=== PATIENT | male | born 1945 | race Caucasian/White ===

== ENCOUNTER 2017-01-17 10:01 | Inpatient (IN) | payer OTHER, MEDICARE ==
[~2017-01-17] VITALS: Ht 182.9 cm; Wt 92.3 kg
[2017-01-17] MEDS ORDERED: ASPI-110 PO (10:03)
[2017-01-17] MEDS ORDERED: MULT-65 PO (10:03)
[2017-01-17] MEDS ORDERED: FISH1000 PO (10:03)
[2017-01-20] MEDS ORDERED: CHLORHEXIDINE GLUCONATE 4% SOLN 120 ML BTL TOPICAL SCH (05:45)
[2017-01-20] MEDS ORDERED: POVIDONE IODINE 7.5% SCRUB 118 ML BOTTLE TOPICAL SCH (05:45)
[2017-01-20] MEDS ORDERED: ceFAZolin 2 GM PREMIX 50 ML IV SCH (05:45)
[2017-01-20] MEDS ORDERED: VANCOMYCIN 1000 MG/NS 250 ML (for <70 kg) IV SCH ×2 (05:45)
[2017-01-20] MEDS ORDERED: DEXAMETHASONE SOD PHOS 20 MG/5 ML VIAL ONE (05:58)
[2017-01-20] MEDS ORDERED: METOPROLOL TARTRATE 25 MG TAB PO PRN (06:00)
[2017-01-20] MEDS ORDERED: INSULIN HUMAN REGULAR 1,000 UNITS/10 ML VIAL SQ PRN (06:00)
[2017-01-20] MEDS ORDERED: SODIUM CHLORID 0.9% 500 ML IV PRN (06:00)
[2017-01-20] MEDS ORDERED: POVIDONE IODINE 5% (ANTISEPSIS KIT) 4 APPLICATIONS EACH NARE PRN (06:00)
[2017-01-20] MEDS ORDERED: LACTATED RINGER'S 1000 ML IV PRN (06:00)
[2017-01-20] MEDS ORDERED: DEXAMETHASONE SOD PHOS 4 MG/ML VIAL IV SCH (06:00)
[2017-01-20] MEDS ORDERED: CHLORHEXIDINE GLUCONATE 2 % 1 PACK (2 CLOTHS) TOPICAL PRN (06:00)
[2017-01-20 06:02] VITALS: BP 159/93; PULSE 86; RESP 18; TEMP 97.9; O2SAT 98
[2017-01-20] MEDS ORDERED: GENTAMICIN SULFATE 80 MG/2 ML VIAL ONE (06:20)
[2017-01-20] MEDS ORDERED: ACETAMINOPHEN 1000 MG/100 ML VIAL IV ONE (06:37)
[2017-01-20] MEDS ORDERED: MIDAZOLAM HCL 2 MG/2 ML VIAL ONE (06:37)
[2017-01-20] MEDS ORDERED: fentaNYL CITRATE 250 MCG/5 ML AMP ONE ×2 (06:37→08:22)
[2017-01-20] MEDS ORDERED: FAMOTIDINE 20 MG/2 ML VIAL ONE (06:37)
[2017-01-20] MEDS ORDERED: DEXAMETHASONE SOD PHOS 4 MG/ML VIAL ONE (06:37)
[2017-01-20] MEDS ORDERED: HYDR-3288 PO (06:44)
[2017-01-20] MEDS ORDERED: ENOX40P SQ (06:44)
[2017-01-20] MEDS ORDERED: diphenhydrAMINE HCL 50 MG/ML VIAL IV PRN (06:45)
[2017-01-20] MEDS ORDERED: BISACODYL 10 MG SUPP RECTAL PRN (06:45)
[2017-01-20] MEDS ORDERED: SODIUM CHLORIDE 0.9% P-ARTICULR SCH (06:45)
[2017-01-20] MEDS ORDERED: ONDANSETRON HCL 4 MG/2 ML VIAL IVP PRN (06:45)
[2017-01-20] MEDS ORDERED: MORPHINE SULFATE 4 MG/ML INJ IV PUSH PRN (06:45)
[2017-01-20] MEDS ORDERED: NALOXONE HCL 0.4 MG/ML AMP IV PRN (06:45)
[2017-01-20] MEDS ORDERED: Post-op Orders (for Pharmacy) MISC XX ONE (06:45)
[2017-01-20] MEDS ORDERED: ZOLPIDEM TARTRATE 5 MG TAB PO PRN (06:45)
[2017-01-20] MEDS ORDERED: ASPI81CH37 CHEW (06:45)
[2017-01-20] MEDS ORDERED: TRANEXAMIC ACID P-ARTICULR SCH (06:45)
[2017-01-20] MEDS ORDERED: SODIUM CHLORIDE 0.9% FLUSH 5 ML FLUSH IVF PRN (06:45)
[2017-01-20] MEDS ORDERED: TRANEXAMIC ACID INJ 2,000 MG in SODIUM CHLORIDE 0.9% INJ 100 ML P-ARTICULR SCH (07:00)
[2017-01-20] MEDS ORDERED: EXPAREL PERI-ARTICULAR INJECTION (TOTAL VOL. 60 ML) P-ARTICULR SCH ×2 (07:00)
[2017-01-20] MEDS ORDERED: TRANEXAMIC ACID IV SCH (07:00)
[2017-01-20] MEDS ORDERED: SODIUM CHLORIDE 0.9% IV SCH (07:00)
[2017-01-20] MEDS ORDERED: DO NOT ADM ANY ANTICOAGULANT DRUGS PRN (08:58)
[2017-01-20] MEDS: SODIUM CHLORIDE 0.9% FLUSH 5 ML FLUSH IVF SCH ×2 (09:00→19:54)
[2017-01-20] MEDS ORDERED: ACETAMINOPHEN/HYDROcodone 325 MG/10 MG TAB PO PRN (09:00)
[2017-01-20] MEDS: SODIUM CHLOR 0.9% 1000 ML INJ 1,000 ML IV SCH ×2 (09:05→17:47)
[2017-01-20] MEDS ORDERED: *morphine SULFATE 8 MG/ML PERIprocedure ONLY ONE (09:38)
--- NOTE | 2017-01-20 10:09 | RADRPT ---
EXAM DATE/TIME: 01/20/2017 09:31 [facility] COMPARISON: No previous studies available for comparison. INDICATIONS : Post-op total right hip arthroplasty. MEDICAL HISTORY : None. SURGICAL HISTORY : None. ENCOUNTER: Initial ACUITY: 1 day PAIN SCORE: 5/10 LOCATION: Right Hip. FINDINGS: Right total hip arthroplasty is present. Hardware appears intact. Alignment is anatomic. The adjacent pelvis is intact. Peterson catheter is noted. Significant degenerative changes present in the contralat eral left hip. CONCLUSION: Satisfactory appearance post right STUART Wali Kramer MD on January 20, 2017 at 10:06 Board Certified Radiologist. This report was verified electronically.
[2017-01-20 11:31] VITALS: BP 141/69; PULSE 103; RESP 18; TEMP 95.9; O2SAT 97
[2017-01-20] MEDS ORDERED: PHENYLEPH/NS 1000 MCG/10 ML SYR IV ONE (12:00)
[2017-01-20] MEDS ORDERED: ePHEDrine/NS 25 MG/5 ML SYR IV ONE (12:00)
[2017-01-20] MEDS ORDERED: ONDANSETRON HCL 4 MG/2 ML VIAL IV PUSH ONE (12:00)
[2017-01-20] MEDS ORDERED: NEOSTIGMINE 3 MG/3 ML SYR IV ONE (12:00)
[2017-01-20] MEDS ORDERED: LACTATED RINGER'S 1000 ML INJ 1,000 ML IV ONE (12:00)
[2017-01-20] MEDS ORDERED: PROPOFOL 200 MG/20 ML AMP IV ONE (12:00)
--- NOTE | 2017-01-20 13:47 | RADRPT ---
EXAM DATE/TIME: 01/20/2017 07:27 [facility] COMPARISON: No previous studies available for comparison. INDICATIONS : Total right hip replacement. MEDICAL HISTORY : None. SURGICAL HISTORY : None. ENCOUNTER: Initial ACUITY: 1 day PAIN SCORE: Non-responsive. LOCATION: Right hip. FINDINGS: The patient is status post a total hip arthroplasty with a bipolar prosthesis. Prosthesis is well-sea erwin. Alignment is anatomic. A fracture is not appreciated. CONCLUSION: Anatomic alignment. Cristi Verdugo MD FACR Board Certified Radiologist. This report was verified electronically.
[2017-01-20] MEDS: ACETAMINOPHEN/HYDROcodone 325 MG/10 MG TAB PO PRN ×2 (15:04→21:15)
[2017-01-20 15:34] VITALS: BP 126/78; PULSE 106; RESP 18; TEMP 96; O2SAT 96
[2017-01-20 19:25] VITALS: O2SAT 96
[2017-01-20 20:16] VITALS: BP 141/69; PULSE 122; RESP 18; TEMP 98.1; O2SAT 95
[2017-01-20 21:45] VITALS: BP 115/65; PULSE 76; RESP 17; TEMP 96; O2SAT 94
[2017-01-21 00:45] VITALS: BP 122/71; PULSE 86; RESP 16; TEMP 96.6; O2SAT 94
[2017-01-21 04:00] VITALS: BP 149/74; PULSE 78; RESP 16; TEMP 96.1; O2SAT 94
[2017-01-21] MEDS: SODIUM CHLOR 0.9% 1000 ML INJ 1,000 ML IV SCH (04:02)
[2017-01-21] MEDS: ACETAMINOPHEN/HYDROcodone 325 MG/10 MG TAB PO PRN ×3 (04:03→12:48)
--- NOTE | 2017-01-21 07:44 | EKG ---
Date Performed: 01/20/2017 Time Performed: 06:31:09 PTAGE: 71 years EKG: Sinus rhythm WITH OCCASIONAL SUPRAVENTRICULAR PREMATURE COMPLEXES MARKED LEFT AXIS DEVIATION RIGHT BUNDLE BRANCH BLOCK ABNORMAL ECG NO PREVIOUS TRACING DOCTOR: Gail Lawson Interpretating Date/Time 01/21/2017 07:41:54
[2017-01-21 08:00] VITALS: BP 133/76; PULSE 73; RESP 15; TEMP 96.9; O2SAT 95
[2017-01-21] MEDS ORDERED: ENOXAPARIN SODIUM 40 MG/0.4 ML SYRINGE SQ SCH (08:00)
--- NOTE | 2017-01-21 08:06 | PD.ORT.PN ---
Subjective Post Op Day #: 1 Subjective Remarks doing well. pain under control. Objective Vitals Vital Signs Date Time Temp Pulse Resp B/P Pulse Ox O2 Delivery O2 Flow Rate FiO2 01/21/17 05:09 18 01/21/17 04:00 96.1 78 16 149/74 94 01/21/17 00:45 96.6 86 16 122/71 94 01/20/17 23:20 Room Air 01/20/17 21:45 96.0 76 17 115/65 94 01/20/17 19:25 96 Nasal Cannula 2.00 01/20/17 15:34 96.0 106 18 126/78 96 01/20/17 11:31 95.9 103 18 141/69 97 01/20/17 09:59 97.5 92 16 153/72 97 Nasal Cannula 2 01/20/17 09:45 92 18 156/69 97 Nasal Cannula 2 01/20/17 09:30 90 20 154/90 98 Nasal Cannula 2 01/20/17 09:15 86 20 148/81 98 Nasal Cannula 3 01/20/17 09:02 97.6 96 14 130/82 97 Nasal Cannula 3 I/O 01/20/17 01/20/17 01/20/17 01/21/17 01/21/17 01/21/17 07:00 15:00 23:00 07:00 15:00 23:00 Intake Total 2456 ml 4187 ml 514 ml Output Total 2675 ml 2400 ml 1000 ml Balance -219 ml 1787 ml -486 ml Intake Oral 405 ml 3840 ml 240 ml IV Total 651 ml 347 ml 274 ml Other 1400 ml Output Urine Total 2475 ml 2400 ml 1000 ml Estimated Blood Loss 200 ml # Bowel Movements 0 0 0 Objective Remarks in bed, nad incision no erythema, no drainage neg homans nvi Assessment & Plan Ortho Post Op Day #: 1 Problem List: Assessment and Plan s/p R STUART wbat daily dressing changes lovenox d/c planning home with [facility] and pt - cleared today after PT if pain tolerable rx in chart f/up dr. lr 2 weeks Adithya Benavides Jan 21, 2017 08:06
--- NOTE | 2017-01-21 08:08 | HHI.DCPOC ---
Discharge Care Plan Diagnosis: (1) Primary localized osteoarthrosis, pelvic region and thigh Your Health Problems Are: Difficulty with ADL Goals to Promote Your Health * To prevent worsening of your condition and complications * To maintain your health at the optimal level Directions to Meet Your Goals Take your medications as prescribed Follow your dietary instruction Follow activity as directed Keep your appointments as scheduled Take your immunizations and boosters as scheduled If your symptoms worsen call your PCP, if no PCP go to Urgent Care Center or Emergency Room Smoking is Dangerous to Your Health. Avoid second hand smoke Call the 24-hour hour crisis hotline for domestic abuse at Adithya Benavides Jan 21, 2017 08:08
--- NOTE | 2017-01-21 08:08 | HHI.FF ---
Face to Face Verification Diagnosis: (1) Primary localized osteoarthrosis, pelvic region and thigh Physical Therapy Gait training, Safety evaluation, Transfer training, bed to chair Hip: Total hip, Protocol: Right Right LE Weight Bearing: WB as tolerated Nursing RN: 3 days/week x 2 weeks Nursing: Ashley teaching, Dressing changes Dressing Changes: Daily dressing change I have seen patient Daniel Simmons on 01/21/17. My clinical findings support the need for the requested home health care services because: Limited ability to care for self High risk of falls I certify that my clinical findings support that this patient is homebound because: Post-op weakness Unsteady gait/balance Adithya Benavides Jan 21, 2017 08:08
[2017-01-21] MEDS ORDERED: WALKER WHEELS/F1 MIS (08:09)
[2017-01-21] MEDS ORDERED: COMMODE 3-IN-11 MIS (08:09)
[2017-01-21 08:17] LABS: HEMATOCRIT 39.8 % (39.0-51.0); MEAN CELL VOLUME 94.1 FL (80.0-100.0); MEAN CORPUSCULAR HEMOGLOBIN 31.2 PG (27.0-34.0); MEAN CORPUSCULAR HGB CONC 33.1 % (32.0-36.0); PLATELET COUNT 169 TH/MM3 (150-450); RED BLOOD COUNT 4.23 MIL/MM3 (4.50-5.90); REVIEW FLAG FINAL
[2017-01-21 08:49] LABS: BICARBONATE 27.7 MEQ/L (21.0-32.0); POTASSIUM 3.5 MEQ/L (3.5-5.1)
[2017-01-21] MEDS: SODIUM CHLORIDE 0.9% FLUSH 5 ML FLUSH IVF SCH (09:00)
[2017-01-21 12:00] VITALS: BP 116/75; PULSE 65; RESP 18; TEMP 97.3; O2SAT 94
[2017-01-21 13:50] VITALS: RESP 16
--- NOTE | 2017-01-21 15:01 | PD.CONS ---
[facility] Request[facility] By Dr. Hernandez Reason for Consult Medical management Primary Care Physician Cristi Smith DO Diagnoses: History of Present Illness This is a 71-year-old male with a history of chronic right hip pain secondary to osteoarthritis. Underwent elective arthroplasty Dr. Hernandez who requested consultation to evaluate and manage medical conditions. Anesthesia record reviewed shows patient received crystalloid 1400 mL, EBL 200 mL and urine output of 1800 mL. This time he complains of minimal pain scale of 3 out of 4. He does not have any medical conditions except for hyperglycemia which he was recently told. Denies nausea, dizziness, chest pain, shortness of breath and palpitations. All other systems reviewed negative Review of Systems Except as stated in HPI: all other systems reviewed are Neg Past Family Social History Allergies: Coded Allergies: No Known Allergies (Unverified , 01/17/17) Past Medical History As previously mentioned Past Surgical History Hernia repair Reported Medications Multivitamins Family History Heart disease Social History Occasional alcohol use. Does not smoke. Physical Exam Vital Signs Vital Signs Date Time Temp Pulse Resp B/P Pulse Ox O2 Delivery O2 Flow Rate FiO2 01/21/17 13:50 16 01/21/17 12:00 97.3 65 18 116/75 94 01/21/17 11:11 Nasal Cannula 2.00 01/21/17 08:00 96.9 73 15 133/76 95 01/21/17 04:00 96.1 78 16 149/74 94 01/21/17 00:45 96.6 86 16 122/71 94 01/20/17 23:20 Room Air 01/20/17 21:45 96.0 76 17 115/65 94 01/20/17 19:25 96 Nasal Cannula 2.00 01/20/17 15:34 96.0 106 18 126/78 96 Physical Exam GENERAL: This is a well-nourished, well-developed patient, in no apparent distress. SKIN: No rashes, ecchymoses or lesions. Cool and dry. HEAD: Atraumatic. Normocephalic. No temporal or scalp tenderness. EYES: Pupils equal round and reactive. Extraocular motions intact. No scleral icterus. No injection or drainage. ENT: Nose without bleeding, purulent drainage or septal hematoma. Throat without erythema, tonsillar hypertrophy or exudate. Uvula midline. Airway patent. NECK: Trachea midline. No JVD or lymphadenopathy. Supple, nontender, no meningeal signs. CARDIOVASCULAR: Regular rate and rhythm without murmurs, gallops, or rubs. RESPIRATORY: Clear to auscultation. Breath sounds equal bilaterally. No wheezes , rales, or rhonchi. GASTROINTESTINAL: Abdomen soft, non-tender, nondistended. No guarding. MUSCULOSKELETAL: Extremities without clubbing, cyanosis, or edema. No joint tenderness, effusion, or edema noted. No calf tenderness. Negative Homans sign bilaterally. NEUROLOGICAL: Awake and alert. Cranial nerves II through XII intact. Motor and sensory grossly within normal limits. Five out of 5 muscle strength in all muscle groups. Normal speech. Laboratory Outside records reviewed glucose 110, urine nitrogen 17 creatinine 1.0 to schedule 144 potassium 4.4 INR 1 white count of 5.9 hemoglobin 16 platelet count 207 urinalysis unremarkable Laboratory Tests Test 01/21/17 01/21/17 07:11 07:16 White Blood Count 9.0 Red Blood Count 4.23 Hemoglobin 13.2 Hematocrit 39.8 Mean Corpuscular Volume 94.1 Mean Corpuscular Hemoglobin 31.2 Mean Corpuscular Hemoglobin 33.1 Concent Red Cell Distribution Width 14.0 Platelet Count 169 Mean Platelet Volume 8.5 Sodium Level 140 Potassium Level 3.5 Chloride Level 104 Carbon Dioxide Level 27.7 Anion Gap 8 Blood Urea Nitrogen 15 Creatinine 1.05 Estimat Glomerular Filtration 70 Rate Random Glucose 152 Calcium Level 8.8 Result Diagram: 01/21/17 0711 01/21/17 0716 Imaging Last Impressions Hip and Pelvis X-Ray 01/20/17 0000 Signed Impressions: Service Date/Time: Friday, January 20, 2017 09:31 - CONCLUSION: Satisfactory appearance post right STUART Wali Kramer MD Hip X-Ray 01/20/17 0000 Signed Impressions: Service Date/Time: Friday, January 20, 2017 07:27 - CONCLUSION: Anatomic alignment. Cristi Verdugo MD Assessment and Plan Assessment and Plan This is a 71-year-old male with a history of chronic right hip pain secondary to osteoarthritis. Underwent elective arthroplasty Dr. Hernandez who requested consultation to evaluate and manage medical conditions. Anesthesia record reviewed shows patient received crystalloid 1400 mL, EBL 200 mL and urine output of 1800 mL. Continue postoperative care with pain management with Lortab and IV morphine, wound care, physical therapy, incentive spirometry and DVT prophylaxis with Lovenox Hyperglycemia. Check A1c. Discussed Condition With Home care physical therapy when cleared by orthopedic surgery Wander Viramontes MD Jan 21, 2017 15:01
[2017-01-21] MEDS ORDERED: DOCUSATE SODIUM 100 MG CAP PO SCH (21:00)
[2017-01-21] MEDS ORDERED: MULTIVITAMINS/MINERALS THERAPEUTIC TAB PO SCH (21:00)
--- NOTE | 2017-01-21 23:19 | MP ---
cc: ADELE HERNANDEZ DATE OF SURGERY 01/20/2017 PREOPERATIVE DIAGNOSIS Right hip osteoarthritis. POSTOPERATIVE DIAGNOSES Right hip osteoarthritis. PROCEDURE Right total hip arthroplasty. SURGEON Dr. Adele Hernandez RADIO INTELLIGENCE OPERATOR OLIVIA Belle ANESTHESIA General. ESTIMATED BLOOD LOSS 200 cc. COMPLICATIONS None. IMPLANTS USED DePuy Corail size 14 Press-Fit standard offset femoral stem; size 54 solid pinnacle Gription cup, 36-mm neutral highly cross-linked polyethylene liner, 36 mm ceramic head, +12 neck. JUSTIFICATION This patient is a 71-year-old male with history of severe end-stage osteoarthritis involving the right hip. He has also developed osteonecrosis of the femoral head. He has severe pain associated with his condition which interferes with his activities of daily living. He has failed greater than 3 months of nonoperative conservative to include medication therapy, ambulates with assisted aids, home exercise program, activity modification. The patient is not overweight. X-ray of the right hip reveal severe end-stage osteoarthritis, [id number] joint space narrowing, subchondral sclerosis, subchondral cyst osteophyte formation, superior subluxation and collapse of the femoral head. The patient was counseled as to the risks, benefits and alternatives to a total hip arthroplasty. The risks were discussed which include but not limited to anesthesia, bleeding, infection, damage to nerves, blood vessels, pain, stiffness, fracture-dislocation, blood clots, pulmonary embolism, even . The patient's pain is severe. He favored the benefits over the risks and did wish to proceed with surgery. PROCEDURE IN DETAIL A written consent was obtained. The patient was identified by name, taken to the operating room and placed supine on the OR table, general anesthesia was administered as well as 2 grams of IV Ancef and 1 gram of IV vancomycin. The right and left feet were placed in padded traction boots. The right hip and right lower extremity were prepped and draped using as isopropyl alcohol, Hibiclens solution and Chloraprep solution. After a time-out was performed a longitudinal incision was made over the anterolateral aspect of the right hip. The fascial layer was incised. Dissection was carried over tensor fascia elle beneath rectus femoris to allow exposure of the anterior hip capsule. A capsulotomy incision was performed. An oscillating saw was used to perform a femoral neck cut. The osteoarthritic femoral head and neck component was removed. A 10 blade scalpel was used to excise the labrum. Sequential reaming began at size 47, was carried to a size 54. Subsequently, a solid pinnacle Gription cup was implanted approximately 45 degrees of abduction and 10 degrees of anteversion. There was good purchase and fixation. After insertion of the cup a screw hole eliminator was placed followed by the neutral liner. The linear was impacted in place, tested for stability. Attention was turned to the femur where the leg was externally rotated, adducted and extended. The capsule was released off the inner surface of the greater trochanter to allow for elevation and lateralization of the femur. Box cutting ostium used to gain entrance into the intramedullary canal of the femur. This was followed by canal finder and sequential broaching up size 14. Calcar planer was used to plan the calcar, trial head neck combinations were evaluated and final components was implanted with the current components. The leg could achieve external rotation of 70 degrees and extension all the way down to the ground without evidence of anterior instability or impingement. Fluoroscopic imaging showed appropriate implantation of components. The surgical wound was thoroughly irrigated with sterile saline, pulse lavage antibiotic impregnated solution. The fascial layer was closed with #1 Vicryl suture, the subcutaneous layer with 2-0 Vicryl sutures. Skin was closed with Dermabond. Sterile dressing applied. The patient tolerated the procedure well with no intraoperative complications. NOTE Edwardo Benavides, physician child care assistant-certified, was present during the entire procedure to include patient positioning. The medical necessity of physician child care assistant was indicated in this case due to the complexity of the procedure. He assisted with appropriate manipulation of the leg and also retraction of muscle, tendon, bone, neurovascular structure. He assisted with preparation of bone and also implantation of the prosthetic replacement. Adele Hernandez MD JWBarber/RENATO /8:47 AM /10:58 PM
[2017-01-22 21:25] LABS: HEMOGLOBIN A1a 1.2 %; HEMOGLOBIN A1b 1.9 %; HEMOGLOBIN Ao 84.3 %; HEMOGLOBIN LA1C 2.1 %; HEMOGLOBIN P3 4.1 %
== END 2017-01-21 15:51 | disposition home health service (06) | DRG 470 ==
LOC: HSDI 01-20 05:16 → N06A 01-20 10:12
PROVIDERS: ADMIT Orthopaedic Surgery Sports Medicine; ATTEND Orthopaedic Surgery Sports Medicine
PROC: 0SR904A Replacement of Right Hip Joint with Ceramic on Polyethylene Synthetic Substitute, Uncemented, Open Approach (ICD-10-PCS; principal; 2017-01-20 06:44)
DX: M16.11 Unilateral primary osteoarthritis, right hip (principal); R73.9 Hyperglycemia, unspecified
CPT/HCPCS: 73502; 76000; 80048; 83036; 85027; 86850; 86900; 86901; 93005; 94150; C1776; C9290; J0131; J0690; J1100; J1580; J1650; J2250; J2270; J2370; J2405; J2710; J3010; J3370; J7030; J7050; J7120